=== PATIENT | female | born 1990 | race Caucasian/White ===

== ENCOUNTER 2020-07-23 13:42 | Emergency (ER) | payer MEDICAID ==
[2020-07-23] MEDS ORDERED: Sodium Chloride 0.9% 10 ML Syringe FLUSH PRN (14:49)
[2020-07-23] MEDS ORDERED: Morphine 4 MG/ML Syringe IVPUSH ONE (14:51)
--- NOTE | 2020-07-23 14:57 | EDM.PDOC ---
ED HPI GENERAL MEDICAL PROBLEM - General Stated Complaint: FELL DOWN STAIRS Time Seen by Provider: 07/23/20 14:39 Source of Information: Reports: Patient - History of Present Illness INITIAL COMMENTS - FREE TEXT/NARRATIVE: Gerri is a 30 y/o female who comes to the ER with complaints on pain in her head and back region. Also very sore in bilateral rib region. She states that last night sometime she was coming out of her friend's apt and tripped and fell down about 10 steps. She is unsure if she was knocked out, but was dazed and was able to get up and get home. She denies any alcohol or drug use last night. She did get up and go to work, but her ribs and her lower back hurt. She also has alot fo pain in her head. She took APAP and ibuprofen about 10 am with no relief of her pain. - Related Data Home Meds: Home Meds Cyclobenzaprine [Flexeril] 10 mg PO TID PRN #30 tab 07/23/20 [Rx] Review of Systems - Review of Systems Review Of Systems: See Below Constitutional: Reports: No Symptoms Eyes: Reports: No Symptoms Ears: Reports: No Symptoms Nose: Reports: No Symptoms Mouth/Throat: Reports: No Symptoms Respiratory: Reports: No Symptoms Cardiovascular: Reports: No Symptoms GI/Abdominal: Reports: No Symptoms Genitourinary: Reports: No Symptoms Musculoskeletal: Reports: Back Pain, Muscle Pain, Muscle Stiffness, Other (bilateral rib pain) Skin: Reports: No Symptoms Neurological: Reports: Headache Psychiatric: Reports: No Symptoms ED EXAM, GENERAL - Physical Exam Exam: See Below Exam Limited By: No Limitations General Appearance: Alert, WD/WN, No Apparent Distress (Adult female.) Eye Exam: Bilateral Eye: PERRL Ears: Normal External Exam, Normal Canal, Hearing Grossly Normal Nose: Normal Inspection, Normal Mucosa Throat/Mouth: Normal Inspection, Normal Lips, Normal Voice Head: Atraumatic, Other (note tenderness to palpation over posterior region) Neck: Normal Inspection, Supple, Other (No axial compression pain) Respiratory/Chest: No Respiratory Distress, Lungs Clear, Other (note bruising to bilateral ribs and tenderness with palpation along ribs) Cardiovascular: Normal Peripheral Pulses, Regular Rate, Rhythm, No Edema GI/Abdominal: Normal Bowel Sounds, Soft, Non-Tender (Female) Exam: Deferred Rectal (Female) Exam: Deferred Back Exam: Vertebral Tenderness (lumbar/thoracic region) Extremities: Other (note multiple bruises to thighs and shins) Neurological: Alert, Oriented, CN II-XII Intact, Normal Cognition, Normal Reflexes, No Motor/Sensory Deficits Psychiatric: Normal Affect, Normal Mood Skin Exam: Warm, Dry, Normal Color Lymphatic: No Adenopathy Course - Vital Signs Text/Narrative:: 1439 The patient was seen by the [facility]. Labs, CTs ordered. She was given Morphine 4 mg IV for pain 1655 CTs all negative. Still having pain, Toradol 30mg IVP given. Will send her home with muscle relaxers and supportive cares. She was given discharge instructions and left the ER in stable condition. - Orders/Labs/Meds Orders: Active Orders 24 hr Category Date Time Status Sodium Chloride 0.9% [Saline Flush] Med 07/23/20 14:49 Active 10 ml FLUSH ASDIRECTED PRN Saline Lock Insert [OM.PC] Stat Oth 07/23/20 14:49 Ordered Medication Orders Sodium Chloride (Saline Flush) 10 ml FLUSH ASDIRECTED PRN PRN Reason: Keep Vein Open Labs: Laboratory Tests 07/23/20 07/23/20 07/23/20 Range/Units 14:55 14:55 15:00 WBC 6.2 (4.0-10.0) x10^3/uL RBC 4.17 (4.00-5.50) x10^6/uL Hgb 12.1 (12.0-16.0) g/dL Hct 36.8 (33.0-47.0) % MCV 88.2 (78.0-93.0) fL MCH 29.0 (26.0-32.0) pg MCHC 32.9 (32.0-36.0) g/dL RDW Coeff of Yola 13.7 (10.0-15.0) % Plt Count 202 (130-400) x10^3/uL Neut % (Auto) 41.5 L (50.0-80.0) % Lymph % (Auto) 39.4 (25.0-50.0) % [place] % (Auto) 5.8 (2.0-11.0) % Eos % (Auto) 13.0 H (0.0-4.0) % Baso % (Auto) 0.3 (0.2-1.2) % Sodium (136-145) mmol/L Potassium (3.5-5.1) mmol/L Chloride (98-107) mmol/L Carbon Dioxide (21-32) mmol/L Anion Gap (10-20) mmol/L BUN (7-18) mg/dL Creatinine (0.55-1.02) mg/dL Est Cr Clr Drug Dosing Estimated GFR (MDRD) Glucose (74-106) mg/dL Calcium (8.5-10.1) mg/dL Corrected Calcium (8.5-10.1) mg/dL Total Bilirubin (0.2-1.0) mg/dL AST (15-37) U/L ALT (14-59) U/L Alkaline Phosphatase (46-116) U/L Total Protein (6.4-8.2) g/dL Albumin (3.4-5.0) g/dL Globulin Albumin/Globulin Ratio Urine HCG, Qual Negative (NEGATIVE) Urine Opiates Screen Negative (NEGATIVE) Ur Buprenorphine Scrn Negative (NEGATIVE) Ur Oxycodone Screen Negative (NEGATIVE) Ur EDDP (Meth Metab) Negative (NEGATIVE) Urine Methadone Screen Negative (NEGATIVE) Ur Barbituates Screen Negative (NEGATIVE) Ur Tricyclics Screen Negative (NEGATIVE) Ur Phencyclidine Scrn Negative (NEGATIVE) Ur Amphetamines Screen Negative (NEGATIVE) U Methamphetamines Scrn Negative (NEGATIVE) Urine MDMA Screen Negative (NEGATIVE) U Benzodiazepines Scrn Negative (NEGATIVE) Urine Cocaine Screen Negative (NEGATIVE) U Marijuana (THC) Screen Positive H (NEGATIVE) Ethyl Alcohol (0-3) mg/dL 07/23/20 Range/Units 15:00 WBC (4.0-10.0) x10^3/uL RBC (4.00-5.50) x10^6/uL Hgb (12.0-16.0) g/dL Hct (33.0-47.0) % MCV (78.0-93.0) fL MCH (26.0-32.0) pg MCHC (32.0-36.0) g/dL RDW Coeff of Yola (10.0-15.0) % Plt Count (130-400) x10^3/uL Neut % (Auto) (50.0-80.0) % Lymph % (Auto) (25.0-50.0) % [place] % (Auto) (2.0-11.0) % Eos % (Auto) (0.0-4.0) % Baso % (Auto) (0.2-1.2) % Sodium 140 (136-145) mmol/L Potassium 3.4 L (3.5-5.1) mmol/L Chloride 105 (98-107) mmol/L Carbon Dioxide 28 (21-32) mmol/L Anion Gap 10.4 (10-20) mmol/L BUN 12 (7-18) mg/dL Creatinine 0.7 (0.55-1.02) mg/dL Est Cr Clr Drug Dosing TNP Estimated GFR (MDRD) > 60 Glucose 84 (74-106) mg/dL Calcium 8.2 L (8.5-10.1) mg/dL Corrected Calcium 8.60 (8.5-10.1) mg/dL Total Bilirubin 0.4 (0.2-1.0) mg/dL AST 24 (15-37) U/L ALT 50 (14-59) U/L Alkaline Phosphatase 53 (46-116) U/L Total Protein 6.9 (6.4-8.2) g/dL Albumin 3.5 (3.4-5.0) g/dL Globulin 3.4 Albumin/Globulin Ratio 1.03 Urine HCG, Qual (NEGATIVE) Urine Opiates Screen (NEGATIVE) Ur Buprenorphine Scrn (NEGATIVE) Ur Oxycodone Screen (NEGATIVE) Ur EDDP (Meth Metab) (NEGATIVE) Urine Methadone Screen (NEGATIVE) Ur Barbituates Screen (NEGATIVE) Ur Tricyclics Screen (NEGATIVE) Ur Phencyclidine Scrn (NEGATIVE) Ur Amphetamines Screen (NEGATIVE) U Methamphetamines Scrn (NEGATIVE) Urine MDMA Screen (NEGATIVE) U Benzodiazepines Scrn (NEGATIVE) Urine Cocaine Screen (NEGATIVE) U Marijuana (THC) Screen (NEGATIVE) Ethyl Alcohol < 3 (0-3) mg/dL Meds: Medications Generic Name Dose Route Start Last Admin Trade Name Freq PRN Reason Stop Dose Admin Sodium Chloride 10 ml 07/23/20 14:49 Saline Flush FLUSH ASDIRECTED PRN Keep Vein Open Discontinued Medications Generic Name Dose Route Start Last Admin Trade Name Freq PRN Reason Stop Dose Admin Iopamidol 100 ml 07/23/20 15:10 07/23/20 16:50 Isovue-300 (61%) IVPUSH 07/23/20 15:11 100 ml ONETIME ONE Administration Morphine Sulfate 4 mg 07/23/20 14:51 07/23/20 15:05 Morphine IVPUSH 07/23/20 14:52 4 mg ONETIME ONE Administration Ondansetron HCl 4 mg 07/23/20 15:03 07/23/20 15:08 Zofran IVPUSH 07/23/20 15:04 4 mg ONETIME ONE Administration - Radiology Interpretation Free Text/Narrative:: CT Head WO=neg CT CSpine WO=neg CT Thoracic Spine WO=neg CT Chest,Abdomen, Pelvis W=neg Departure - Departure Time of Disposition: 17:00 Disposition: Home, Self-Care 01 Condition: Good Clinical Impression: Contusion of multiple sites, Fall (on) (from) other stairs and steps, initial encounter - Discharge Information *PRESCRIPTION DRUG MONITORING PROGRAM REVIEWED*: Not Applicable *COPY OF PRESCRIPTION DRUG MONITORING REPORT IN PATIENT [place]: Not Applicable Prescriptions: Cyclobenzaprine [Flexeril] 10 mg PO TID PRN #30 tab PRN Reason: Muscle Spasm Instructions: Fall Prevention in the Home, Adult Referrals: Echo Argueta PA-C [Primary Care Provider] - Additional Instructions: -Ibuprofen 200mg 3 tablets oral every 6 hours as needed (Use over the counter meds) -Acetaminophen 325mg 3 tablets every 6 hours as needed (Use over the counter meds) -Cyclobenzaprine 10mg oral every 8 hours as needed for muscle spasms #30(Rx) -Use ice or heat as needed to sore areas -Rest as needed and increase your activity as you are able -Follow up with your PCP if you have further concerns or return to the ER as needed - My Orders Last 24 Hours: My Active Orders 07/23/20 14:49 Sodium Chloride 0.9% [Saline Flush] 10 ml FLUSH ASDIRECTED PRN Saline Lock Insert [OM.PC] Stat - Assessment/Plan Last 24 Hours: My Active Orders 07/23/20 14:49 Sodium Chloride 0.9% [Saline Flush] 10 ml FLUSH ASDIRECTED PRN Saline Lock Insert [OM.PC] Stat
[2020-07-23] MEDS ORDERED: Ondansetron 4 MG/2 ML SDV IVPUSH ONE (15:03)
[2020-07-23 15:10] LABS: BUPRENORPHINE,URINE NEGATIVE (NEGATIVE); MARIJUANA,URINE POSITIVE (NEGATIVE); METHYLENEDIOXYMETHAMP,UR NEGATIVE (NEGATIVE); PHENCYCLIDINE,URINE NEGATIVE (NEGATIVE)
[2020-07-23] MEDS ORDERED: Iopamidol 612 MG/ML 100 ML Bottle IVPUSH ONE (15:10)
[2020-07-23 15:27] LABS: CHLORIDE,CL 105 mmol/L (98-107); SODIUM,NA 140 mmol/L (136-145)
[2020-07-23 15:32] LABS: ANION GAP 10.4 mmol/L (10-20)
--- NOTE | 2020-07-23 16:36 | CT ---
[id number] CT/CT Chest Abdomen Pelvis W IV Exam: CT Chest Abdomen Pelvis W IV Clinical Data: TRAUMA COMPARISON: NO PREVIOUS SIMILAR EXAM IS AVAILABLE FINDINGS: There is a small amount of free fluid in the pelvis likely physiologic. The endometrium is prominent likely physiologic. The pelvis shows no mass or adenopathy The appendix has been removed. The liver and spleen, kidneys and adrenals, pancreas and aorta are unremarkable The gallbladder has been removed There is no pneumothorax or pulmonary parenchymal contusion The great vessels are intact There is no mediastinal hemorrhage IMPRESSION: NO ACUTE PROCESS William Espinoza MD 07/23/20 [id number] Thank you for allowing us to participate in the care of your patient.
--- NOTE | 2020-07-23 16:38 | CT ---
[id number] CT/CT Thoracic Spine WO IV Exam: CT Thoracic Spine WO IV Clinical Data: TRAUMA COMPARISON: NO PREVIOUS SIMILAR EXAM IS AVAILABLE FINDINGS: No fracture or subluxation is seen The prevertebral soft tissues are unremarkable IMPRESSION: NO FRACTURE OR SUBLUXATION William Espinoza MD 07/23/20 [id number] Thank you for allowing us to participate in the care of your patient.
--- NOTE | 2020-07-23 16:42 | CT ---
[id number] CT/CT Head WO IV EXAM: CT Head WO IV CLINICAL DATA: TRAUMA COMPARISON: NO PREVIOUS SIMILAR EXAM IS AVAILABLE FOR COMPARISON. FINDINGS: There is no mass or mass effect. There is no hemorrhage or hydrocephalus. There are no extra-axial fluid collections. There are no sites of abnormal attenuation. IMPRESSION: NO PLAIN CT EVIDENCE OF ACUTE INTRACRANIAL PROCESS. William Espinoza MD 07/23/20 [id number] Thank you for allowing us to participate in the care of your patient.
--- NOTE | 2020-07-23 16:42 | CT ---
[id number] CT/CT Cervical Spine WO IV Exam: CT Cervical Spine WO IV Clinical Data: TRAUMA COMPARISON: NO PREVIOUS SIMILAR EXAM IS AVAILABLE FINDINGS: No fracture or subluxation is seen. The prevertebral soft tissues are unremarkable. The C1-C2 articulation is intact IMPRESSION: NO FRACTURE OR SUBLUXATION William Espinoza MD 07/23/20 1640 Thank you for allowing us to participate in the care of your patient.
[2020-07-23] MEDS ORDERED: Ketorolac 30 MG/ML SDV IVPUSH ONE (17:09)
== END 2020-07-23 17:10 | disposition home or self-care (01) ==
LOC: VM.ED 13:42
DX: S20.213A Contusion of bilateral front wall of thorax, initial encounter (principal); S70.12XA Contusion of left thigh, initial encounter; S70.11XA Contusion of right thigh, initial encounter; S80.12XA Contusion of left lower leg, initial encounter; S80.11XA Contusion of right lower leg, initial encounter; W10.9XXA Fall (on) (from) unspecified stairs and steps, initial encounter
CPT/HCPCS: 70450; 71260; 72125; 72128; 74177; 80053; 80305; 80307; 81025; 85025; 96374; 96375; 99284; J1885; J2270; J2405; Q9967; 36415

== ENCOUNTER 2020-09-15 12:03 | Emergency (ER) | payer MEDICAID ==
[2020-09-15] MEDS ORDERED: Albuterol/Ipratropium 3.0-0.5 MG/3 ML Neb Soln NEB ONE (12:40)
[2020-09-15] MEDS ORDERED: predniSONE 20 MG Tab PO ONE (12:46)
[2020-09-15] MEDS ORDERED: Ketorolac 30 MG/ML SDV IM ONE (12:46)
--- NOTE | 2020-09-15 12:57 | EDM.PDOC ---
ED HPI GENERAL MEDICAL PROBLEM - General Stated Complaint: SOB COUGH Time Seen by Provider: 09/15/20 12:15 Source of Information: Reports: Patient History Limitations: Reports: No Limitations - History of Present Illness INITIAL COMMENTS - FREE TEXT/NARRATIVE: Patient comes emergency department today with complaints of shortness of breath cough and congestion. This patient for the past 5 days and developed a initially loose and noncongested cough that is now much more congested and thick but nonproductive. No fever or chills. She has tightness in her chest constantly. She has pain in her rib cage with deep breath cough and movement and some soreness when she is not coughing. No syncope. No palpitations. No weakness dizziness lightheadedness. No abdominal pain nausea or vomiting. No hematuria dysuria or urinary frequency. No black or tarry stools. No Covid exposure no Covid symptoms. No loss of taste or smell. Not exposed anyone with Covid. She is 1/2 to 1 pack a day smoker. She has had bronchitis many times in the past and she feels like that is what it is today. It is difficult for her to sleep at night as she is coughing constantly. Did not get her flu shot this year. - Related Data Allergies Allergy/AdvReac Type Severity Reaction Status Date / Time No Known Allergies Allergy Verified 07/23/20 18:18 Home Meds: Home Meds Cyclobenzaprine [Flexeril] 10 mg PO TID PRN #30 tab 07/23/20 [Rx] Albuterol [Ventolin HFA] 2 puff INH Q4H PRN #1 puff 09/15/20 [Rx] Doxycycline [Vibra-Tabs] 100 mg PO Q12HR #14 tab 09/15/20 [Rx] predniSONE [Prednisone] 40 mg PO DAILY 4 Days #8 tablet 09/15/20 [Rx] Past Medical History - Past Health History Medical/Surgical History: Denies Medical/Surgical History ED ROS GENERAL - Review of Systems Review Of Systems: Comprehensive ROS is negative, except as noted in HPI. ED EXAM, GENERAL - Physical Exam Exam: See Below Free Text/Narrative:: Quite congested cough noted when I enter the room but she is in no respiratory distress. Exam Limited By: No Limitations General Appearance: Alert, WD/WN, Anxious Eye Exam: Bilateral Eye: EOMI, PERRL Ears: Normal External Exam, Normal TMs Nose: Normal Inspection, Normal Mucosa Throat/Mouth: Normal Inspection, Normal Lips, Normal Teeth, Normal Gums, Normal Oropharynx, Normal Voice, No Airway Compromise Head: Atraumatic, Normocephalic Neck: Normal Inspection, Supple, Non-Tender, Full Range of Motion Respiratory/Chest: No Respiratory Distress, Lungs Clear, Normal Breath Sounds, No Accessory Muscle Use, Chest Non-Tender Cardiovascular: Normal Peripheral Pulses, Regular Rate, Rhythm GI/Abdominal: Normal Bowel Sounds, Soft, Non-Tender, No Organomegaly, No Distention, No Mass (Female) Exam: Deferred Rectal (Female) Exam: Deferred Back Exam: Normal Inspection Extremities: Normal Inspection, Normal Range of Motion, Non-Tender, No Pedal Edema, Normal Capillary Refill Neurological: Alert, Oriented, CN II-XII Intact, Normal Cognition, No Motor/Sensory Deficits Psychiatric: Normal Affect, Normal Mood Skin Exam: Warm, Dry, Intact, Normal Color, No Rash #1 Interpretation EKG Date: 09/15/20 Time: 12:10 Rhythm: NSR Rate (Beats/Min): 72 [place]: Normal P-Wave: Present QRS: Normal ST-T: Normal QT: Normal Comparison: No Change Course - Orders/Labs/Meds Orders: Active Orders 24 hr Category Date Time Status EKG Documentation Completion [RC] STAT Care 09/15/20 12:40 Active RT Aerosol Therapy [RC] ASDIRECTED Care 09/15/20 12:40 Active Labs: Laboratory Tests 09/15/20 09/15/20 09/15/20 Range/Units 12:22 12:50 12:50 WBC 6.0 (4.0-10.0) x10^3/uL RBC 4.73 (4.00-5.50) x10^6/uL Hgb 14.1 D (12.0-16.0) g/dL Hct 40.5 (33.0-47.0) % MCV 85.6 (78.0-93.0) fL MCH 29.8 (26.0-32.0) pg MCHC 34.8 (32.0-36.0) g/dL RDW Coeff of Yola 13.1 (10.0-15.0) % Plt Count 235 (130-400) x10^3/uL Neut % (Auto) 54.8 (50.0-80.0) % Lymph % (Auto) 32.4 (25.0-50.0) % [place] % (Auto) 6.5 (2.0-11.0) % Eos % (Auto) 6.0 H (0.0-4.0) % Baso % (Auto) 0.3 (0.2-1.2) % Sodium 137 (136-145) mmol/L Potassium 4.2 (3.5-5.1) mmol/L Chloride 102 (98-107) mmol/L Carbon Dioxide 26 (21-32) mmol/L Anion Gap 13.2 (10-20) mmol/L BUN 14 (7-18) mg/dL Creatinine 0.8 (0.55-1.02) mg/dL Est Cr Clr Drug Dosing TNP Estimated GFR (MDRD) > 60 Glucose 106 (74-106) mg/dL Calcium 8.8 (8.5-10.1) mg/dL Corrected Calcium 8.88 (8.5-10.1) mg/dL Total Bilirubin 0.5 (0.2-1.0) mg/dL AST 12 L (15-37) U/L ALT 19 (14-59) U/L Alkaline Phosphatase 50 (46-116) U/L Troponin I < 0.017 (<=0.056) ng/mL C-Reactive Protein 0.7 (<=0.9) mg/dL Total Protein 8.0 (6.4-8.2) g/dL Albumin 3.9 (3.4-5.0) g/dL Globulin 4.1 Albumin/Globulin Ratio 0.95 SARS CoV-2 RNA Rapid JEWELL Negative (NEGATIVE) Meds: Medications Discontinued Medications Generic Name Dose Route Start Last Admin Trade Name Freq PRN Reason Stop Dose Admin Albuterol/Ipratropium 3 ml 09/15/20 12:40 09/15/20 13:13 Duoneb 3.0-0.5 Mg/3 Ml NEB 09/15/20 12:41 3 ml ONETIME ONE Administration Doxycycline Hyclate 100 mg 09/15/20 13:25 Vibramycin PO 09/15/20 13:26 ONETIME ONE Ketorolac Tromethamine 30 mg 09/15/20 12:46 09/15/20 13:12 Toradol IM 09/15/20 12:47 30 mg ONETIME ONE Administration Prednisone 40 mg 09/15/20 12:46 09/15/20 13:13 Prednisone PO 09/15/20 12:47 40 mg ONETIME ONE Administration - Radiology Interpretation Free Text/Narrative:: X-ray per radiology shows a mild medial right base infiltrate and or atelectasis. - Re-Assessments/Exams Free Text/Narrative Re-Assessment/Exam: 09/15/20 12:56 G completed without any ST elevation or depression when reviewed extemporaneously by myself. Covid negative. Influenza negative. DuoNeb nebulizer. Ketorolac 30 mg IM. Prednisone 40 mg p.o. Chest x-ray ordered labs drawn 09/15/20 13:46 Chest x-ray per radiology shows a mild medial right base infiltrate and or atelectasis. Her laboratory evaluation is rather unremarkable. Her troponin is less than 0.017. After the above therapy the patient feels quite a bit better. Cough. Her respiratory symptoms have much improved. She feels quite a bit better. I discussed her laboratory findings as well as her chest x-ray with her. We will start her on doxycycline as well as albuterol and steroids at home. We will make sure that she has a spacer for her inhaler as well. She is understanding of this and her questions are answered. Departure - Departure Time of Disposition: 13:40 Disposition: Home, Self-Care 01 Clinical Impression: Pneumonia Qualifiers: Pneumonia type: due to unspecified organism Laterality: right Lung location: lower lobe of lung Qualified Code(s): J18.9 - Pneumonia, unspecified organism - Discharge Information Instructions: Community-Acquired Pneumonia, Adult, [id number] Forms: ED Return to Work/School Form Additional Instructions: Rest the next few days. MAKE SURE AND DRINK PLENTY OF FLUIDS TO HELP WITH THE SECRETIONS. Tylenol and or Ibuprofen for the pain. Albuterol inhaler, 2 puffs every 4 hrs as needed for wheezing coughing or congestion with a spacer. RX sent to [facility]. Prednisone 40mg daily for the next 5 days total. First dose given in the ED and start tomorrow. RX to [facility]. Doxycycline, 1 tablet twice daily for the next 7 days. First dose given in the ED and RX sent to [facility]. Return to the ED if new or worsening symptoms. Follow up with PCP in the next 4-6 days if not improving sooner if worse. - My Orders Last 24 Hours: My Active Orders 09/15/20 12:40 EKG Documentation Completion [RC] STAT RT Aerosol Therapy [RC] ASDIRECTED - Assessment/Plan Last 24 Hours: My Active Orders 09/15/20 12:40 EKG Documentation Completion [RC] STAT RT Aerosol Therapy [RC] ASDIRECTED
--- NOTE | 2020-09-15 13:23 | CR ---
[id number] RAD/RAD Chest PA And Lateral EXAM: FRONTAL AND LATERAL CHEST INDICATION: COUGH, SHORTNESS OF BREATH. COMPARISON: None. DISCUSSION: Mild medial right base infiltrates and/or atelectasis. The left lung is clear. The heart is normal in size. No effusions. IMPRESSION: 1. Mild medial right base infiltrates and/or atelectasis. Milo Duran MD 09/15/20 [id number] Thank you for allowing us to participate in the care of your patient.
[2020-09-15] MEDS ORDERED: Doxycycline 100 MG Cap PO ONE (13:25)
[2020-09-15 13:26] LABS: CHLORIDE,CL 102 mmol/L (98-107); SODIUM,NA 137 mmol/L (136-145)
[2020-09-15 13:32] LABS: ANION GAP 13.2 mmol/L (10-20)
== END 2020-09-15 14:00 | disposition home or self-care (01) ==
LOC: VM.ED 12:03
DX: J18.9 Pneumonia, unspecified organism (principal); Z20.822 Contact with and (suspected) exposure to COVID-19
CPT/HCPCS: 36415; 71046; 80053; 84484; 85025; 86140; 87804; 87804-59; 93005; 93010; 94640; 96372; 99284; 99285-25; A9270-GY; J1885; J7512; J7620-GY; U0002

== ENCOUNTER 2021-02-04 09:16 | Emergency (ER) | payer MEDICAID ==
[2021-02-04] MEDS ORDERED: Sodium Chloride 0.9% 10 ML Syringe FLUSH PRN (10:03)
[2021-02-04] MEDS ORDERED: fentaNYL 100 MCG/2 ML SDV IVPUSH ONE (10:06)
[2021-02-04] MEDS ORDERED: LORazepam 2 MG/ML SDV IVPUSH ONE (10:33)
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
[2021-02-04 10:40] LABS: ANION GAP 17.9 mmol/L (5-15); CHLORIDE,CL 105 mmol/L (98-107); SODIUM,NA 141 mmol/L (136-145)
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
== END 2021-02-04 13:10 | disposition home or self-care (01) ==
LOC: VM.ED 09:16
DX: S00.03XA Contusion of scalp, initial encounter (principal); S00.83XA Contusion of other part of head, initial encounter; S40.021A Contusion of right upper arm, initial encounter; S80.12XA Contusion of left lower leg, initial encounter; S80.11XA Contusion of right lower leg, initial encounter; Z79.899 Other long term (current) drug therapy; Y04.0XXA Assault by unarmed brawl or fight, initial encounter
CPT/HCPCS: 70450; 70486; 71045; 72125; 80053; 85025; 96374; 96375; 99285-25; J2060; J3010

== ENCOUNTER 2022-03-19 22:01 | Emergency (ER) | payer MEDICAID | END 2022-03-19 23:38 | disposition home or self-care (01) | LOC: VM.ED 22:01 | DX: S93.505A Unspecified sprain of left lesser toe(s), initial encounter (principal); Z79.899 Other long term (current) drug therapy; X58.XXXA Exposure to other specified factors, initial encounter | CPT/HCPCS: 73620-LT; 99283 ==

== ENCOUNTER 2022-05-18 08:45 | Emergency (ER) | payer MEDICAID ==
[2022-05-18] MEDS ORDERED: LORazepam 2 MG/ML SDV IVPUSH ONE (08:59)
[2022-05-18] MEDS ORDERED: GI Cocktail Oral Solution 30 ML PO ONE (09:01)
[2022-05-18 09:42] LABS: CHLORIDE,CL 103 mmol/L (98-107); SODIUM,NA 140 mmol/L (136-145)
[2022-05-18 09:45] LABS: BARBITURATE SCREEN,URINE NEGATIVE (NEGATIVE); BENZODIAZEPINES SCREEN,URINE POSITIVE (NEGATIVE); BUPRENORPHINE SCREEN,URINE NEGATIVE (NEGATIVE); METHAMPHETAMINE SCREEN, URINE NEGATIVE (NEGATIVE); THC SCREEN,URINE 50 NG/ML POSITIVE (NEGATIVE)
[2022-05-18 09:47] LABS: ANION GAP 16.9 mmol/L (5-15); ESTIMATED GFR 119 mL/min (>=60)
[2022-05-18] MEDS ORDERED: Ondansetron 4 MG Tab.DIS PO ONE (10:08)
== END 2022-05-18 10:32 | disposition home or self-care (01) ==
LOC: VM.ED 08:45
DX: F41.9 Anxiety disorder, unspecified (principal); Z79.899 Other long term (current) drug therapy
CPT/HCPCS: 36415; 80053; 80305-QW; 80307; 81001; 82150; 83690; 84484; 85025; 86140; 96374; 99284-25; A9270-GY; J2060

== ENCOUNTER 2022-06-13 12:34 | Emergency (ER) | payer MEDICAID | END 2022-06-13 13:52 | disposition home or self-care (01) | LOC: VM.ED 12:34 | DX: S86.911A Strain of unspecified muscle(s) and tendon(s) at lower leg level, right leg, initial encounter (principal); V00.831A Fall from motorized mobility scooter, initial encounter | CPT/HCPCS: 73562-RT; 99283 ==

== ENCOUNTER 2022-08-27 20:40 | Emergency (ER) | payer MEDICAID ==
[2022-08-27] MEDS ORDERED: Ibuprofen 200 MG Tab PO ONE (21:34)
[2022-08-27] MEDS ORDERED: Take Home: Amoxicillin/Clavulanate K 875-125 MG Tab, 2 Tab Pack PO ONE (23:00)
[2022-08-27] MEDS ORDERED: Take Home: Acetaminophen/Codeine 300 MG/30 MG, 5 Tab Pack PO ONE (23:00)
== END 2022-08-27 23:40 | disposition home or self-care (01) ==
LOC: VM.ED 20:40
DX: S00.03XA Contusion of scalp, initial encounter (principal); S80.01XA Contusion of right knee, initial encounter; S50.01XA Contusion of right elbow, initial encounter; S00.83XA Contusion of other part of head, initial encounter; J01.90 Acute sinusitis, unspecified; Z79.899 Other long term (current) drug therapy; Y04.0XXA Assault by unarmed brawl or fight, initial encounter
CPT/HCPCS: 70450; 70486; 73080-RT; 73562-RT; 99284; A9270-GY

== ENCOUNTER 2022-11-03 21:17 | Emergency (ER) | payer MEDICAID ==
[2022-11-03] MEDS: ClonazePAM 0.5 MG Tab PO ONE (22:04)
[2022-11-03] MEDS: Ibuprofen 200 MG Tab PO SCH (22:04)
[2022-11-03] MEDS: Acetaminophen/HYDROcodone 325-5 MG Tab PO ONE (22:43)
[2022-11-03] MEDS: Take Home: Acetaminophen/HYDROcodone 325-10 MG, 5 Tab Pack PO ONE (22:43)
== END 2022-11-03 22:58 | disposition home or self-care (01) ==
LOC: VM.ED 21:17
DX: S50.11XA Contusion of right forearm, initial encounter (principal); S60.212A Contusion of left wrist, initial encounter; S09.90XA Unspecified injury of head, initial encounter; Z72.0 Tobacco use; Y04.0XXA Assault by unarmed brawl or fight, initial encounter
CPT/HCPCS: 73090; 73100; 99284; A9270